=== PATIENT | female | born 1980 | race Asian ===

== ENCOUNTER 2019-11-15 04:20 | Emergency (ER) | payer OTHER ==
[~2019-11-15] VITALS: Ht 152.4 cm; Wt 48.5 kg
[2019-11-15 04:24] VITALS: BP_SYST 155
--- NOTE | 2019-11-15 04:24 | NUR ---
Patient to ER bed 5 to gown for evaluation. Side rails up. Report given to ELLIE Benz.
--- NOTE | 2019-11-15 04:27 | NUR ---
PLACED IN BED 5. HERE FOR BLEEDING FROM THE INCISION SITE. HAD NECK SURGERY LAST WEDNESDAY AND WAS DISCHARGED WEDNESDAY NIGHT. WOKE UP WITH SOME BLEEDING AT THE INCISION SITE ON THE LEFT.
--- NOTE | 2019-11-15 04:46 | NUR ---
ER-MD CAME BY BEDSIDE TO EVALUATE PT.
--- NOTE | 2019-11-15 05:10 | NUR ---
INCISION SITE CLEANSED WITH NS. NO ACTIVE BLEEDING NOTED. COVERED WITH VASELINIZED GAUZE AND PRESSURE DRESSING APPLIED.
--- NOTE | 2019-11-15 05:25 | NUR ---
DISCHARGED STABLE. VERBAL AND WRITTEN AFTERCARE INSTRUCTIONS GIVEN. VERBALIZED UNDERSTANDING. LEFT AMBULATORY WITH STABLE GAIT.
[2019-11-15 05:29] VITALS: BP_SYST 130
== END 2019-11-15 05:29 | disposition home or self-care (01) ==
LOC: SED 04:20
DX: M96.831 Postprocedural hemorrhage of a musculoskeletal structure following other procedure (principal); Z85.850 Personal history of malignant neoplasm of thyroid
CPT/HCPCS: 99283